=== PATIENT | male | born 1965 | race Two or more races ===

== ENCOUNTER 2019-10-16 07:55 | Day surgery (SDC) | payer OTHER | END 2019-10-16 15:25 | disposition home or self-care (01) | LOC: AMB-ENDOS 07:55 | PROVIDERS: ATTEND Surgery | DX: D12.4 Benign neoplasm of descending colon (principal); D12.8 Benign neoplasm of rectum; Z20.828 Contact with and (suspected) exposure to other viral communicable diseases ==

== ENCOUNTER 2020-12-19 11:45 | Inpatient (IN) | payer OTHER ==
[~2020-12-19] VITALS: Ht 175.3 cm; Wt 97.5 kg
[2020-12-19] MEDS ORDERED: TENORMIN100 M1 PO (14:00)
[2020-12-19] MEDS ORDERED: ACID REDUCER20 M1 PO (14:00)
[2020-12-19] MEDS ORDERED: SYNTHROID100 MCG PO (14:01)
[2020-12-19] MEDS ORDERED: DIOVAN HCT 1601 EACH PO (14:01)
[2020-12-25] MEDS ORDERED: OMEGA-3 FISH1000 MG (15:20)
[2020-12-25] MEDS ORDERED: OMEPRAZOLE20 MG (15:20)
[2020-12-25] MEDS ORDERED: FAMOTIDINE20 MG (15:21)
[2020-12-25] MEDS ORDERED: VITAMIN D31250 MCG (15:21)
[2020-12-27] MEDS ORDERED: PERCOCET 5-3251 EACH PO (11:51)
== END 2020-12-27 14:39 | disposition home or self-care (01) | DRG 331 ==
LOC: SURH 12-25 07:00 → O/R 12-25 10:47 → SURH 12-25 11:45
PROVIDERS: ADMIT Surgery; ATTEND Surgery
PROC: 0DTP4ZZ Resection of Rectum, Percutaneous Endoscopic Approach (ICD-10-PCS; 2020-12-25)
PROC: 0DBN4ZZ Excision of Sigmoid Colon, Percutaneous Endoscopic Approach (ICD-10-PCS; principal; 2020-12-25 07:00)
DX: K57.32 Diverticulitis of large intestine without perforation or abscess without bleeding (principal)